=== PATIENT | female | born 1960 | race African-American/Black ===

== ENCOUNTER → 2018-11-05 | Outpatient (CLI) | payer OTHER ==
[~2018-11-05] MED LIST: ACETAMINOPHEN650 M5 PO; ALAVERT10 MG PO; AMBIEN 5 MG TABL5 M1 PO; AMITIZA 24 MCG24 MC1 PO; AMITRIPTYLINE H50 M2 PO; AMITRIPTYLINE H50 M3 PO; ASPIR 8181 MG PO; AVELOX 400 MG400 MG PO; BACLOFEN 10MG T10 M1 PO; BACTRIM DS TAB1 EACH PO; CHERATUSSIN AC118 ML PO; CHERATUSSIN DA480 ML PO; CITRATE OF MAG296 ML PO; CLARITIN10 MG PO; CLEOCIN HCL300 MG PO; CLOBETASOL; CLOBETASOL PROP60 G1 INTRADERM; CLOBETASOL PROP60 G1 TP; CLOBETASOL PROP60 G3 TOP; COLACE100 MG PO; COMPAZINE25 MG PO; DESONIDE 0.05%60 M1 TOP; DESONIDE 0.05%60 M1 TP; DILAUDID2 M1 PO; DURAGESIC; ERGOCALCIF50000 UNIT PO; FENTANYL 1100 MCG/HR TRANSDERM; FENTANYL PATCH75 MCG TP; FLEXERIL PO; FLUZONE 2045 MCG/010; FOLIC ACID1 MG PO; FUROSEMIDE PO; GLUCOPHAGE500 MG PO; HUMIRA20 MG/0.4; HYDROXYCHLOROQ200 M1 PO; IBUPROFEN 800800 M1 PO; IMITREX100 MG PO; LASIX 20 MG TAB20 MG PO; LEVAQUIN 500 M500 M2 PO; LIDODERM 5%1 PATCH INTRADERM; LIDODERM TRANSDERM; LIORESAL 10 MG10 MG PO; MEDROLDOSEPACK PO; METHOTREXATE 22.5 MG PO; MIRALAX255 GM; MIRALAX255 GM PO; MUCINEX600 MG PO; NAPROSYN500 MG PO; NEURONTIN 300300 M1 PO; NICOTINE TRANSD14 M1 TRANSDERM; NORCO 5-325 TA1 EACH PO; ORENCIA125 MG/1 M SQ; OS-CAL 500+D C1 EACH PO; PERCOCET 10-321 EACH PO; PERCOCET 5-3251 EACH PO; PERCOCET 7.5-31 EACH PO; PHENERGAN 25 MG25 M1 PO; PREDNISONE 10 M10 M1 PO; PREDNISONE 20 M20 M1 PO; PREDNISONE 20 M20 MG PO; PREDNISONE 5 MG5 M1 PO; PREDNISONE 5 MG5 MG PO; PRILOSEC 20 MG20 MG PO; PROAIR HFA8.5 GM IH; PROAIR HFA8.5 GM PO; PROTONIX40 M1 PO; PROZAC 20 MG20 M1 PO; RESTORIL30 MG PO; SAVELLA1 EACH PO; SAVELLA50 MG PO; SENOKOT-S TABL1 EACH PO; SENOKOT-S1 TA1 PO; TAMIFLU45 MG PO; TESSALON200 MG PO; TUMS PO; TYLENOL325 MG PO; UNICOMPLEX M TA1 TA1 PO; VALIUM10 MG PO; VALIUM5 MG PO; VENTOLIN HFA INH8 GM INH; VITAMIN D1000 UNI1 PO; ZANTAC 150MG T150 M1 PO; ZOFRAN 4 MG ORAL4 MG PO; ZOFRAN ODT4 MG PO; ZOFRAN4 MG PO; ZPAK PO; [UNRECOGNIZED DRUG - OTHER] PO
== END ==
LOC: ULTRA 16:43
DX: M79.89 Other specified soft tissue disorders (principal); M79.604 Pain in right leg

== ENCOUNTER 2018-11-20 13:50 | Emergency (ER) | payer OTHER ==
[~2018-11-20] VITALS: Ht 160 cm; Wt 92.1 kg
[2018-11-20] MEDS ORDERED: HYDROCHLOROTH12.5 M1 PO (13:59)
[2018-11-20] MEDS ORDERED: XELJANZ5 MG PO (14:02)
[2018-11-20 14:34] LABS: ABSOLUTE NEUTROPHILS 5.6 thou/uL (1.4-8.2); BASOPHILS 0.3 % (0.0-2.0); EOSINOPHILS 0.3 % (0.0-3.0); HEMATOCRIT 39.1 % (37.0-47.0); HEMOGLOBIN 13.4 gm/dL (12.0-15.0); LYMPHOCYTES 18.2 % (24.0-44.0); MCH 30.3 pg (26.0-34.0); MCHC 34.1 g/dL (28.0-37.0); MCV 88.8 fL (80.0-100.0); MONOCYTES 5.8 % (1.0-8.0); PLATELET COUNT 272 thou/uL (150-400); POLYS 75.4 % (36.0-66.0); RBC 4.41 mil/uL (4.20-5.00); RDW 16.1 % (10.5-14.5); WBC 7.4 thou/uL (4.0-11.0)
[2018-11-20 14:36] LABS: CALCIUM 9.2 mg/dL (8.5-10.1); CREATININE 1.3 mg/dL (0.6-1.0); POTASSIUM 3.7 mmol/L (3.5-5.1)
[2018-11-20 14:50] LABS: ALBUMIN 3.4 g/dL (3.4-5.0); TOTAL BILIRUBIN 0.3 mg/dL (<0.1-1.0); TOTAL PROTEIN 7.8 g/dL (6.4-8.2)
[2018-11-20 15:20] LABS: URINE BILIRUBIN NEGATIVE (Negative); URINE BLOOD NEGATIVE (Negative); URINE CLARITY CLEAR; URINE COLOR YELLOW; URINE GLUCOSE-RANDOM* NEGATIVE (Negative); URINE KETONES NEGATIVE (Negative); URINE LEUKOCYTES-REFLEX 2+ (Negative); URINE NITRITE-REFLEX NEGATIVE (Negative); URINE PROTEIN (DIPSTICK) TRACE (Negative); URINE UROBILINOGEN 0.2 E.U./dl (0.2-1.0)
[2018-11-20 15:29] LABS: SQUAMOUS 0-3 Few /LPF (0-3); URINE RBC >20 Many /HPF (0-2); URINE WBC-REFLEX 6-15 Few /HPF (0-5)
[2018-11-20 15:30] LABS: BACTERIA-REFLEX 1-9 Few /HPF (None Seen); CASTS None Seen /LPF (None Seen); CRYSTALS None Seen /LPF (None Seen)
[2018-11-20] MEDS ORDERED: KEFLEX500 M1 PO (17:08)
[2018-11-20 17:16] VITALS: BP 123/70
== END 2018-11-20 17:25 | disposition home or self-care (01) ==
LOC: ER 13:50
PROVIDERS: Emergency Medicine
DX: N39.0 Urinary tract infection, site not specified (principal); F17.210 Nicotine dependence, cigarettes, uncomplicated; M32.9 Systemic lupus erythematosus, unspecified; E11.9 Type 2 diabetes mellitus without complications; M06.9 Rheumatoid arthritis, unspecified; M79.7 Fibromyalgia; I10 Essential (primary) hypertension; G43.909 Migraine, unspecified, not intractable, without status migrainosus; Z88.0 Allergy status to penicillin; Z88.8 Allergy status to other drugs, medicaments and biological substances; Z88.5 Allergy status to narcotic agent